=== PATIENT | male | born 1950 | race Caucasian/White ===

== ENCOUNTER → 2019-01-23 09:19 | Outpatient (CLI) | payer MEDICARE, OTHER, SELFPAY ==
--- NOTE | 2019-01-23 | CA_ITS ---
APPROVED REPORT Exam: Pharmacologic Technologist: nathalia quarles, Ht: 5 ft 11 in Wt: 335 lbs BSA: 2.63 m2 HR: 70 bpm BP: 150/74 mmHg Indications: SOB, CAD Medical History Medical History: CAD s/p MO Medications: Asa,,,,, Metformin,,,,, Ferrous sulfate,,,,, Gabapentin,,,,, Ranitidine,,,,, Carvedilol,,,,, Lasix,,,,, INSULIN,,,,, Lipitor,,,,, AmOLODIPNE,,,,, Olmesartan,,,,, Allergies: No known drug allergies Cardiac Risk Factors: HTN, Hyperlipidemia, Diabetes (insulin), FHX of CAD Stress Test Details Test: LEXISCAN HR Resting HR: 67 bpm Max Heart Rate (APMHR): 154 bpm Max HR Achieved: 87 bpm Target HR (85% APMHR): 130 bpm % of APMHR: 56 Recovery HR: 72 bpm BP Resting BP: 150/74 mmHg Max BP: 150/74 mmHg Recovery BP: 137.0/58.0 mmHg ECG Resting ECG: NSR, Twave abn. inferiorly Clinical Exercise duration: 04:23 min Highest Stage Achieved: Exercise capacity: 1.0 METs Stress ECG Conclusion Symptoms: SOA, Nausea, Malasie, but No CP. No arrhythmias. No significant ST Changes. Unremarkable Lexiscan. Images reported seperately. Test Summary REST 03:16 . . 67 . 150/ 74 . . Stage 1 01:00 . . 75 . . . . Stage 2 01:00 . . 87 . 145/ 54 . . Stage 3 01:00 . . 79 . 149/ 64 . . Stage 4 01:00 . . 72 . . . . Stage 4 01:23 . . 75 . . . Stop exercise at 04:23 RECOVERY 01:00 . . 74 . 137/ 58 . . RECOVERY 02:00 . . 76 . 138/ 64 . . RECOVERY 03:00 . . 74 . 138/ 64 . . RECOVERY 04:00 . . 78 . 142/ 64 . . RECOVERY 05:00 . . 74 . 142/ 64 . . RECOVERY 05:18 . . 74 . 146/ 69 . . Electronically signed by : William Valencia, 01/23/2019 14:25:48
--- NOTE | 2019-01-23 09:22 | CA_ITS ---
APPROVED REPORT EXAM: Comprehensive 2D, Doppler, and color-flow Echocardiogram Pole Inspector: Anny Slaughter RVT Ht: 5 ft 11 in Wt: 336lbs BSA: 2.63 BP: 148/66 mmHg Indications: Shortness of Breath, Diabetes, Obesity, CAD, Hyperlipidemia, Hypertension,Ex smoker 2D Dimensions IVSd 1.20 cm M: 0.6-1.2 LVEF (Visual) 53.10 % PWd 1.01 cm M: 0.6 - 1.2 LVDd 5.27 cm M: 4.2 - 5.9 LVDs 3.82 cm M: 2.5 - 4.0 LVOT 1.95 cm (M/F) 1.5-2.5 M-Mode Dimensions LA Diam 4.40 cm (1.9-4.0) LVDd 5.27 cm (3.5-5.7) Ao Diam 3.60 cm (2.0-3.7) LVDs 6.10 cm (3.5-5.7) AV Cusp 2.10 cm (1.5-2.6) IVSd 0.90 cm (0.6-1.1) PWd 0.94 cm (0.6-1.1) EF (Teich) 42.00% FS 23.43% EDV (Teich) 322.00 mL ESV (Teich) 186.90 mL LV Diastology E/A Ratio 0.96 Mitral Valve MV A Velocity 59.00 (40-130 cm/s) Left Ventricle Left atrium is mildly enlarged, left ventricle is normal size, mild concentric left ventricular hypertrophy, visually estimated ejection fraction 45%, there is moderate hypokinesis involving the inferior basal wall. Endocardial surfaces are poorly visualized. Grade 1 diastolic dysfunction seen without tissue Doppler evidence of raise left atrial pressure. Right Ventricle Right atrium and right ventricle are mildly enlarged with normal contractility. Aortic Valve Aortic valve is thickened and calcified leaflet chordae display good mobility, there is no aortic stenosis or aortic insufficiency. Mitral Valve Mitral valve is grossly normal, there is mild mitral regurgitation. Tricuspid Valve Tricuspid valve is grossly normal, there is mild tricuspid regurgitation. Pulmonic Valve Pulmonic valve is poorly visualized. Great Vessels Aortic root is normal size. Pericardium No significant pericardial effusion noted. Conclusion 1. Technically difficult study because of the patient fact in poor acoustic windows. 2. Biatrial enlargement, normal left ventricular size, mild concentric left ventricular hypertrophy, visually estimated ejection fraction 45% with segmental wall motion abnormality described above, endocardial surfaces are poorly visualized. Grade 1 diastolic dysfunction seen without tissue Doppler evidence of raise left atrial pressure. 3. Mildly enlarged right ventricle with normal contractility. 4. Mild mitral and tricuspid regurgitation. 5. No significant pericardial effusion noted. Electronically signed by : William Valencia, 01/23/2019 14:24:44
--- NOTE | 2019-01-23 10:08 | NM_ITS ---
APPROVED REPORT Exam: Nuclear Stress Test Indication: short of breath, fatigue Patient Location: Outpatient Stress Tech: Enid Coffeyon [place] Tech:Cristina TerrazasKAREN RT(R)(N) Ht: 5 ft 11 in Wt: 335 lbs HR: 70 bpm BP: 150/74 mmHg BSA: 2.63 m2 BMI: 46.7 History: short of breath, fatigue Procedure: Patient received a 0.4 mg of intravenous Lexiscan, resting heart rate 70 bpm, resting blood pressure 150/74 mmHg, with Lexiscan maximum heart rate achived was 72 bpm which is Less than 85 % of the maximum predicted heart rate and blood pressure was 137/58 mmHg. Electrocardiogram Resting electrocardiogram showed sinus rhythm, with Lexiscan there is less than 1.[address] segment depression noted from the baseline EKG. The EKG portion of the Lexiscan Myoview is nondiagnostic. Cardiac Stress and Resting SPECT Images: Cardiac Stress and Resting SPECT images were obtained using technetium 99m Myoview 31.6 mCi stress and 10.41 mCi at rest. Gated SPECT with analysis of segmental wall motion and calculation of the ejection fraction also done. Cardiac stress and resting SPECT images show a fixed defect involving the inferior basal wall consistent with area of myocardial scarring, in addition there is partial reversible defect seen anteroseptally which is consistent with mixed ischemia and scar. Computer derived ejection fraction is 65% with moderate inferior basal wall hypokinesis. Right ventricle is mildly enlarged with normal contractility. Conclusion: 1. The EKG portion of the Lexiscan Myoview is nondiagnostic. 2. Scintigraphic evidence of myocardial scarring involving the inferior basal wall without significant familia-infarct ischemia, in addition there is mixed ischemia and scar involving the anteroseptal wall. Computer derived ejection fraction is 65% with segmental wall motion abnormality described above, right ventricle is mildly enlarged with normal contractility. 3. Abnormal Lexiscan Myoview study. Electronically signed by : William Vaelncia, 01/23/2019 14:32:08
--- NOTE | 2019-01-23 13:13 | HMH.ITSHM ---
Current Home Medications as stated by this patient Francisco Ortega or procurement representative. [] ferrous sulfur olmesartan gapapentin carvedilol humulin ranitidine asa amlodipine astorvastatin
== END ==
PROVIDERS: PCP Family Medicine; Visit Provider Nurse Practitioner Family
DX: I11.0 Hypertensive heart disease with heart failure (principal); I50.32 Chronic diastolic (congestive) heart failure; R06.02 Shortness of breath; R53.83 Other fatigue; E11.9 Type 2 diabetes mellitus without complications; I25.10 Atherosclerotic heart disease of native coronary artery without angina pectoris; Z79.84 Long term (current) use of oral hypoglycemic drugs
CPT/HCPCS: 78452; 93017; 93306

== ENCOUNTER → 2020-08-05 11:06 | Outpatient (CLI) | payer MEDICARE, OTHER, SELFPAY | PROVIDERS: PCP Physician Assistant; Visit Provider Nurse Practitioner Family | DX: E78.5 Hyperlipidemia, unspecified (principal); I11.0 Hypertensive heart disease with heart failure; I20.9 Angina pectoris, unspecified; I50.30 Unspecified diastolic (congestive) heart failure; R00.2 Palpitations; R06.02 Shortness of breath | CPT/HCPCS: 93270 ==

== ENCOUNTER → 2020-08-11 06:09 | Outpatient (CLI) | payer MEDICARE, OTHER, SELFPAY ==
--- NOTE | 2020-08-11 06:21 | CA_ITS ---
APPROVED REPORT Exam: Pharmacologic Technologist: Elinor Clark, Ht: 5 ft 11 in Wt: 356 lbs BSA: 2.69 m2 HR: 56 bpm BP: 139/52 mmHg Medical History Medications: Omeprazole,,,,, Aspirin,,,,, Ferrous sulfate,,,,, Gabapentin,,,,, Vitamin D3,,,,, Atorvastatin,,,,, Carvedilol,,,,, Lasix,,,,, Humulin R,,,,, Benicar,,,,, AmOLODIPine,,,,, Stress Test Details Test: LEXISCAN HR Resting HR: 60 bpm Max Heart Rate (APMHR): 153.879186 bpm Max HR Achieved: 72 bpm Target HR (85% APMHR): 130.176295 bpm % of APMHR: 47.06 Recovery HR: 64 bpm BP Resting BP: 139/52 mmHg Max BP: 139/52 mmHg Recovery BP: 132.0/57.0 mmHg ECG Resting ECG: Sinus melissa, rightward axis, NS T wave abn inferiorly Clinical Exercise duration: 04:01 min Highest Stage Achieved: Exercise capacity: 1.0 METs Stress ECG Conclusion Symptoms: SOA, mild nausea. No CP. Arrhythmias/Ectopy: None ST-T Changes: No significant changes. Conclusion: Unremarkable Lexiscan stress. Myoview images reported separately. Electronically signed by : William Valencia, 08/12/2020 09:54:49
--- NOTE | 2020-08-11 06:21 | NM_ITS ---
APPROVED REPORT Exam: Nuclear Stress Test Indication: Chest pain, SOB, Palpitations, CAD, Hx of [place], HTN, DM, Family history Patient Location: Outpatient Stress Tech: Elinor Clark [place] Tech:Paris Yip, ARRT, RT (R)(N) Ht: 5 ft 11 in Wt: 356 lbs HR: 56 bpm BP: 139/52 mmHg BSA: 2.69 m2 BMI: 49.6 History: Chest pain, SOB, Palpitations, CAD, Hx of [place], HTN, DM, Family history Procedure: Patient received a 0.4 mg of intravenous Lexiscan, resting heart rate 56 bpm, resting blood pressure 139/52 mmHg, with Lexiscan maximum heart rate achived was 64 bpm which is Less than 85 % of the maximum predicted heart rate and blood pressure was 132/57 mmHg. With Lexiscan, patient denied any complaint of chest pain. Electrocardiogram Resting electrocardiogram showed sinus rhythm, with Lexiscan there is less than 1.[address] segment depression noted from the baseline EKG. The EKG portion of the Lexiscan is nondiagnostic. Cardiac Stress and Resting SPECT Images: Cardiac Stress and Resting SPECT images were obtained using technetium 99m Myoview 31.7 mCi stress and 9.93 mCi at rest. Gated SPECT for analysis of segmental wall motion and calculation of the ejection fraction also done. Prone images were also obtained. Cardiac stress and resting SPECT images show reversible ischemia involving the apex and anteroseptal wall, there is transient ischemic dilatation of the left ventricle is also seen. Computer derived ejection fraction 54% with no obvious regional wall motion abnormality, right ventricle is normal size and contractility. Conclusion: 1. The EKG portion of the Lexiscan is nondiagnostic. 2. Scintigraphic evidence of reversible ischemia involving the apex and anteroseptal wall, there is transient ischemic dilatation of the left ventricle seen, computer derived ejection fraction is 54% with no regional wall motion abnormality, right ventricle is normal size and contractility. 3. Abnormal Lexiscan Myoview study. Electronically signed by : William Valencia, 08/12/2020 09:58:48
--- NOTE | 2020-08-11 08:07 | HMH.ITSHM ---
Current Home Medications as stated by this patient Francisco Ortega or marketing representative. []OMEPRAZOLE OLMESARTAN INSULIN GABAPENTIN FUROSEMIDE FERROUS SULFATE VITAMIN D3 CARVEDILOL ATORVASTATIN ASA AMLODIPINE
--- NOTE | 2020-08-11 08:15 | CA_ITS ---
APPROVED REPORT EXAM: Comprehensive 2D, Doppler, and color-flow Echocardiogram Instant Print Operator: URBANO Quinonez, RVS Ht: 5 ft 11 in Wt: 356lbs BSA: 2.69 BP: 142/74 mmHg Indications: Shortness of Breath, Diabetes, Obesity, CAD, Cardiomyopathy, Old VT, AAA, Edema Echo Enhancing Agent Indication: Endocardial border delineation Agent(s) / Amount(s) Used: Definity 2 cc Comments: Extreme body habitus. 2D Dimensions IVSd 0.93 cm M: 0.6-1.2 LVEF (Visual) 78.20 % PWd 0.92 cm M: 0.6 - 1.2 LVDd 5.66 cm M: 4.2 - 5.9 LVDs 2.98 cm M: 2.5 - 4.0 Aortic Root 2.96 cm M: 3.1 - 3.7 Left Atrium 4.74 cm M: 3.0 - 4.0 LVOT 2.08 cm (M/F) 1.5-2.5 M-Mode Dimensions RVDd 3.57 cm (0.9-2.6) LA Diam 5.16 cm (1.9-4.0) LVDd 5.94 cm (3.5-5.7) Ao Diam 3.50 cm (2.0-3.7) LVDs 3.57 cm (3.5-5.7) IVSd 1.07 cm (0.6-1.1) PWd 1.03 cm (0.6-1.1) EF (Teich) 69.70% EPSs 0.49 cm FS 39.90% EDV (Teich) 175.90 mL TAPSE 2.96 (<1.7) ESV (Teich) 53.30 mL LV Diastology E Decel Time 237.00 (160-240 msec) E/A Ratio 1.58 MED E' 8.40 (< 7 cm/sec) MED A' 8.00 cm/s E'/MED E' Ratio 14.90 (>14) LAT E' 11.90 (<10 cm/sec) LAT A' 10.10 cm/s E/LAT E' Ratio 10.52 (>14) Aortic Valve LVOT Max 100.00 (70-110 cm/s) LVOT VTI 23.35 cm AoV Peak Gerard. 157.00 (50-130 cm/s) AO Peak GR. 9.90 mmHg AO Mean GR. 5.00 (<5 mmHg) AO VTI 36.37 (18-25 cm) FLORY (VTI) 2.18 (2.5-4.5 cm2) Mitral Valve MV A Velocity 79.00 (40-130 cm/s) E/A Ratio 1.58 MV Decel. Time 237.00 (160-240 ms) Pulmonary Valve PV Peak Velocity 65.00 (50-150 cm/s) Left Ventricle Technically difficult study because of the patient factors and poor acoustic windows, Definity contrast was utilized to delineate the endocardial surfaces. Left atrium is mildly enlarged, left ventricle is normal size, mild concentric left ventricular hypertrophy, visually estimated ejection fraction 50% with moderate inferior basal wall hypokinesis. Diastolic parameters are inconclusive. Right Ventricle Right atrium and right ventricle are normal size and contractility. Aortic Valve Aortic valve is minimally thickened and fibrosed, there is no aortic stenosis or aortic insufficiency. Mitral Valve Mitral valve is grossly normal, there is trace mitral regurgitation. Tricuspid Valve Tricuspid grossly normal, there is trace tricuspid regurgitation, tricuspid regurgitation jet velocity is inadequate for calculation of the right ventricular systolic pressure. Pulmonic Valve Pulmonic valve is poorly visualized. Great Vessels Aortic root is normal size. Pericardium No significant pericardial effusion noted. Conclusion 1. Mildly enlarged left atrium, normal left ventricular size, mild concentric left ventricular hypertrophy, visually estimated ejection fraction 50% with segmental wall motion abnormality described above, diastolic parameters are inconclusive. 2. Mild mitral and tricuspid regurgitation. 3. No significant pericardial effusion noted. Electronically signed by : William Valencia, 08/12/2020 12:56:30
== END ==
PROVIDERS: PCP Physician Assistant; Visit Provider Nurse Practitioner Family
DX: E78.5 Hyperlipidemia, unspecified (principal); I11.0 Hypertensive heart disease with heart failure; I20.9 Angina pectoris, unspecified; I50.30 Unspecified diastolic (congestive) heart failure; R00.2 Palpitations; R06.02 Shortness of breath
CPT/HCPCS: 78452; 93017; 93306; A9502; J2785; Q9957

== ENCOUNTER 2020-09-07 07:37 | Day surgery (SDC) | payer MEDICARE, OTHER, SELFPAY ==
[2020-09-07] VITALS (11 sets, daily range): BP systolic 127–163; BP diastolic 56–75; PULSE 54–66; RESP 16–18; TEMP 36.8; O2SAT 90–96; BMI 49.6
--- NOTE | 2020-09-07 07:34 | IR_ITS ---
APPROVED REPORT Patient Location: Outpatient Physical Sciences Professor: KAREN Almendaerz RT (R) PROCEDURES Left heart catheterization Left ventriculogram Selective coronary angiogram INDICATION Known coronary disease, Abnormal stress test Informed consent was obtained prior to the procedure. COMPLICATIONS None Estimated Blood Loss: Less than 10 mls TECHNIQUE One percent lidocaine used to anesthetize the right anterior aspect of the wrist. The right radial artery was accessed via the Seldinger technique. A 6 Maltese sheath was placed in the right radial artery. 2.5 mg of verapamil, 800 mcg of nitroglycerin, 1mg Lidocaine and 5000 U Heparin were given through the arterial sheath. The trap catheter was also used to perform left heart catheterization, left ventriculogram and selective coronary angiogram. At the end of the procedure the sheath was removed good hemostasis was achieved using Traclet band, patient was transferred to the postop holding area in stable condition. ANGIOGRAPHIC RESULTS The left main artery Normal The left anterior descending artery Is a small caliber vessel less than 2 mm throughout its entire course. Proximally there is 50% narrowing with additional 70 to 80% stenoses throughout areas of 1 mm to 1.5 mm in diameter. Small diagonal artery also has proximal 70% stenosis The circumflex artery Is a nondominant yet still large vessel which has a high first obtuse marginal artery which has 70% stenoses however the vessel is 1 to 1.5 mm in diameter. The true circumflex artery is long with a large terminal obtuse marginal artery which has diffuse mild atheromatous plaque and is 2.5 mm in diameter The right coronary artery Is a large dominant vessel which has proximal eccentric 30% stenoses mid vessel 30% stenoses. A large 3 mm posterior descending artery has a proximal eccentric 40 to 50% stenosis The KESSLER ventriculogram reveals Preserved at 55 to 60% The left ventricular end-diastolic pressure Elevated at 20 to 25 mmHg IMPRESSION Unusually small and diffusely diseased LAD system which is too small for percutaneous intervention Moderate disease in the first obtuse marginal artery which is also too small for percutaneous intervention Large dominant right coronary artery with mild to moderate disease in a large posterior descending artery Preserved ejection fraction Moderately elevated LVEDP PLAN 1. Patient's coronary artery disease is changed very little, if any, from last cardiac catheterization. I recommend ongoing medical management 2. Treatment of diastolic dysfunction 3. Weight loss and exercise 4. Cardiac rehabilitation Electronically signed by : Lior Reyes, 09/07/2020 10:30:45
[2020-09-07 08:56] LABS: Basophils # 0.1 K/mm3 (0-0.2); Basophils % 0.8 % (0.1-2.0); Eosinophils # 0.2 K/mm3 (0.0-0.4); Eosinophils % 2.5 % (0.1-12.0); Hematocrit 37.5 % (42.0-52.0); Hemoglobin 12.7 g/dL (14.1-18.0); Lymphocytes # 1.9 K/mm3 (0.7-4.5); Mean Corpuscular HGB Conc 33.8 g/dL (31.8-35.4); Mean Corpuscular Hemoglobin 28.1 pg (27.0-31.2); Mean Corpuscular Volume 83.1 fl (80-94); Mean Platelet Volume 9.7 fl (7.4-10.4); Monocytes # 0.3 K/mm3 (0.1-1.0); Monocytes % 3.9 % (1.7-9.3); Neutrophils # 5.3 K/mm3 (1.8-7.8); Neutrophils % 67.8 % (37.0-80.0); Platelet Count 160 K/mm3 (142-424); Red Blood Count 4.52 M/mm3 (4.60-6.20); Red Cell Distribution Width 14.8 % (11.5-17.5); White Blood Count 7.8 K/mm3 (4.8-10.8)
[2020-09-07 09:05] LABS: Anion Gap 13.6 mEq/L (5-15); Blood Urea Nitrogen 20 mg/dl (9-20); Calcium 8.9 mg/dl (8.4-10.2); Carbon Dioxide 27 mmol/L (22.0-30.0); Chloride 103 mmol/L (98-107); Creatinine Clearance Estimated 64 mL/min (50-200); Estimated Glomerular Filt Rate 60 ml/min (>60); GFR (African American) 73 ML/MIN (>60); Glucose 208 mg/dl (74-100); Potassium 4.6 mmoL/L (3.5-5.1); Sodium 139 mmol/L (136-145)
== END 2020-09-07 13:07 | disposition home or self-care (01) ==
LOC: CATHLAB 07:46
PROVIDERS: PCP Physician Assistant; Visit Provider Internal Medicine
DX: I25.118 Atherosclerotic heart disease of native coronary artery with other forms of angina pectoris (principal); I42.9 Cardiomyopathy, unspecified; I71.4 Abdominal aortic aneurysm, without rupture; I77.9 Disorder of arteries and arterioles, unspecified; N18.2 Chronic kidney disease, stage 2 (mild); R06.02 Shortness of breath; R94.39 Abnormal result of other cardiovascular function study; E78.2 Mixed hyperlipidemia; E11.51 Type 2 diabetes mellitus with diabetic peripheral angiopathy without gangrene; E11.22 Type 2 diabetes mellitus with diabetic chronic kidney disease; I13.0 Hypertensive heart and chronic kidney disease with heart failure and stage 1 through stage 4 chronic kidney disease, or unspecified chronic kidney disease; I50.32 Chronic diastolic (congestive) heart failure; R94.31 Abnormal electrocardiogram [ECG] [EKG]
CPT/HCPCS: 80048; 85025; 93458; 99152; C1725; C1769; J1644; Q9967

== ENCOUNTER → 2023-01-18 12:32 | Outpatient (CLI) | payer MEDICARE, OTHER, SELFPAY ==
--- NOTE | 2023-01-18 12:32 | CA_ITS ---
APPROVED REPORT EXAM: Comprehensive 2D, Doppler, and color-flow Echocardiogram Collections Professional: Anny Slaughter RVT Ht: 5 ft 10 in Wt: 360lbs BSA: 2.68 BP: 150/63 mmHg Indications: CM,CAD,CP,HTN,HLD,DM,SOA, TDS-PT BODY HABITUS M-Mode Dimensions RVDd 2.14 cm (0.9-2.6) LA Diam 4.35 cm (1.9-4.0) LVDd 6.51 cm (3.5-5.7) LVDs 4.86 cm (3.5-5.7) IVSd 1.14 cm (0.6-1.1) PWd 0.56 cm (0.6-1.1) EF (Teich) 48.90% FS 25.30% EDV (Teich) 216.80 mL ESV (Teich) 110.70 mL LV Diastology E Decel Time 230 (160-240 msec) E/A Ratio 1.4 Aortic Valve AO Peak GR. 5.30 mmHg Mitral Valve MV E Max Gerard. 108.0 (40-130 cm/s) MV A Velocity 77.0 (40-130 cm/s) E/A Ratio 1.40 MV PHT 67.0 ms Pulmonary Valve PV Peak Velocity 103.0 (50-150 cm/s) Tricuspid Valve TR P. Velocity 236.00 cm/s RAP Estimate 10.00 mmHg RVSP 32.20 mmHg Left Ventricle The left ventricle is normal size. The left ventricular systolic function is mildly reduced. There is normal left ventricular wall thickness. The septum appears asynchronous. There is moderate hypokinesis of the basal lateral and inferolateral LV alvarenga. The left ventricular diastolic function is normal. LVEF is 45-50%. Right Ventricle The right ventricle is normal size. The right ventricular systolic function is normal. Atria The left atrium size is normal. The right atrium size is normal. There is no Doppler evidence of interatrial shunt. Aortic Valve The aortic valve is mildly thickened. There is no aortic valvular stenosis. No aortic regurgitation is present. Mitral Valve The mitral valve is normal in structure. No evidence of mitral valve stenosis. There is no mitral valve regurgitation noted. Tricuspid Valve The tricuspid valve leaflets are thin and pliable. Trace tricuspid regurgitation. There is insufficient TR jet to estimate RVSP. Pulmonic Valve The pulmonary valve is normal in structure. Trace pulmonic regurgitation. Great Vessels The aortic root is normal in size. The ascending aorta is normal in size. IVC is normal in size and collapses >50% with inspiration. Pericardium There is no pericardial effusion. Other Information Study Quality: Technically Difficult Conclusion Technically difficult study due to poor acoustic windows. Mildly reduced LV systolic function (LVEF 45-50%). Asynchronous septum. Moderate hypokinesis of the basal lateral and inferolateral LV alvarenga. No significant valvular stenosis or regurgitation. Electronically signed by : Yun Barrientos MD 01/24/2023 12:18:56
== END ==
PROVIDERS: PCP Internal Medicine; Visit Provider Physician Assistant
DX: I35.0 Nonrheumatic aortic (valve) stenosis (principal); Z86.79 Personal history of other diseases of the circulatory system
CPT/HCPCS: 93306

== ENCOUNTER 2024-06-16 09:30 | Outpatient (CLI) | payer MEDICARE, OTHER, SELFPAY ==
--- NOTE | 2024-06-16 | CA_ITS ---
APPROVED REPORT EXAM: Comprehensive 2D, Doppler, and color-flow Echocardiogram Printing Shop Supervisor: Karlee Taveras RT(R) Ht: 5 ft 10 in Wt: 369lbs BSA: 2.71 BP: 151/67 mmHg Indications: hx CM, CAD, CKD, EF 45-50% echo 12/2022, ex smoker, DM, HTN, hyperlipidemia. Limited windows secondary to body habitus. Patient scanned on his back, unable to roll. M-Mode Dimensions RVDd 2.28 cm (0.9-2.6) LA Diam 4.22 cm (1.9-4.0) LVDd 5.95 cm (3.5-5.7) LVDs 4.47 cm (3.5-5.7) IVSd 0.94 cm (0.6-1.1) PWd 0.98 cm (0.6-1.1) EF (Teich) 48.50% FS 24.90% EDV (Teich) 176.60 mL ESV (Teich) 91.00 mL LV Diastology E Decel Time 193 (160-240 msec) E/A Ratio 1.6 Mitral Valve MV E Max Gerard. 96.0 (40-130 cm/s) MV A Velocity 61.0 (40-130 cm/s) E/A Ratio 1.59 MV PHT 57.0 ms Tricuspid Valve TR P. Velocity 198.00 cm/s RAP Estimate 10.00 mmHg RVSP 25.70 mmHg Left Ventricle The left ventricle is normal size. The left ventricular systolic function is normal. The left ventricular ejection fraction is within the normal range. There is increased LV wall thickness. There is normal LV segmental wall motion. Diastolic function is indeterminate. LVEF is 55%. Right Ventricle The right ventricle is not well-visualized, but grossly appears normal in size and function. Atria The left atrium size is normal. The right atrium size is normal. Aortic Valve The left atrium is mildly dilated. Trace aortic regurgitation. There is no aortic valvular stenosis. Mitral Valve The mitral valve is normal in structure. No evidence of mitral valve stenosis. Trace mitral regurgitation. Tricuspid Valve Tricuspid valve is grossly normal in structure and function. Trace tricuspid regurgitation. There is insufficient TR jet to estimate RVSP. Pulmonic Valve The pulmonary valve is normal in structure. Trace pulmonic regurgitation. Great Vessels The aortic root is normal in size. IVC is normal in size and collapses >50% with inspiration. Pericardium There is no pericardial effusion. Other Information Study Quality: Technically Difficult Conclusion Technically difficult study due to poor acoustic windows. Normal biventricular systolic function. No significant valvular stenosis or regurgitation. Electronically signed by : Yun Barrientos MD 06/22/2024 15:11:38
== END 2024-06-16 23:59 | disposition home or self-care (01) ==
LOC: RT 09:32
PROVIDERS: PCP Physician Assistant; Visit Provider Physician Assistant
DX: I51.89 Other ill-defined heart diseases (principal)
CPT/HCPCS: 93306